=== PATIENT | female | born 1980 | race Caucasian/White ===

== ENCOUNTER → 2018-02-15 18:12 | Outpatient (CLI) | payer OTHER, SELFPAY ==
[2018-02-20 17:13] LABS: HPV APTIMA, High Risk Negative (Negative)
== END ==
PROVIDERS: Visit Provider Obstetrics & Gynecology
DX: Z12.4 Encounter for screening for malignant neoplasm of cervix (principal)
CPT/HCPCS: 88175; G0145

== ENCOUNTER → 2018-03-05 12:12 | Outpatient (CLI) | payer OTHER, SELFPAY ==
[2018-03-05 14:06] LABS: Follicle Stimulating Hormone 11.3 mIU/mL; Prolactin 9.9 ng/mL; Thyroid Stim Hormone (TSH) 2.44 uIU/mL (0.358-3.74)
== END ==
PROVIDERS: Visit Provider Obstetrics & Gynecology
DX: N97.9 Female infertility, unspecified (principal)
CPT/HCPCS: 36415; 83001; 84146; 84443

== ENCOUNTER → 2019-01-30 11:51 | Outpatient (CLI) | payer OTHER, SELFPAY ==
[2019-02-03 12:59] LABS: Anti-Mullerian Hormone,Serum 0.824 ng/mL (.)
== END ==
DX: Z31.41 Encounter for fertility testing (principal)
CPT/HCPCS: 36415; 83516

== ENCOUNTER → 2019-04-29 | Outpatient (CLI) | payer OTHER, SELFPAY ==
[2018-02-15 08:49] VITALS: BMI 19.1
[2019-04-29 08:37] LABS: Prolactin 19.4 ng/mL; Thyroid Stim Hormone (TSH) 3.58 uIU/mL (0.358-3.74)
== END | disposition home or self-care (01) ==
LOC: LAB 07:14
DX: Z13.29 Encounter for screening for other suspected endocrine disorder (principal)
CPT/HCPCS: 36415; 84146; 84443

== ENCOUNTER → 2020-01-14 | Outpatient (CLI) | payer OTHER, SELFPAY ==
[2018-02-15 08:49] VITALS: BMI 19.1
[2020-01-14 08:55] LABS: Progesterone Level 45.09 ng/mL (See Comment)
== END | disposition home or self-care (01) ==
LOC: LAB 06:52
DX: N97.0 Female infertility associated with anovulation (principal)
CPT/HCPCS: 36415; 84144

== ENCOUNTER 2021-06-04 11:52 | Emergency (ER) | payer OTHER, SELFPAY ==
[2021-06-04 11:53] VITALS: BP 112/69; PULSE 67; RESP 18; TEMP 36.6; O2SAT 97; BMI 19.2
--- NOTE | 2021-06-04 12:26 | EX.ED.UPPERE ---
HPI History of Present Illness HPI Narrative: Patient presents after needlestick that occurred today. Patient states that she was using a K wire on a patient when it accidentally cut her finger. Patient reports that the K wire was exposed to the source patient although it was not deep into the source patient. Patient states the K wire cut her on the cuticle of her right index finger. Patient states that it was bleeding briskly initially. Patient denies any paresthesias or weakness. Chief Complaint: Occup Expose Informant: patient Occured/Mechanism Mechanism/Context: Yes puncture wound Onset/Context/Timing Onset: Today Context: Sudden Onset Timing: Continuous Location: Right index finger Worsened by: Nothing Relieved by: Nothing Associated Symptoms Associated Symptoms: Negative for Parasthesia and Weakness PFSH PFSH Home Medications NK 02/15/18 [History Last Taken Unknown] Allergy/AdvReac Type Severity Reaction Status Date / Time No Known Allergies Allergy Verified 06/04/21 11:56 Family History (Updated 02/15/18 @ 08:48 by Lacie Martinez) Father Diabetes Grandfather Diabetes Colon cancer Grandmother Rheumatoid arthritis Lung cancer Surgical History S/P right breast biopsy Social History Smoking Status: Never smoker alcohol intake: current details: occasionally substance use type: does not use caffeine: Yes what type of physical activity do you participate in: running and weight training frequency: 3-4 times per week seatbelt use: always do you feel safe at home: Yes additional social history: - Rakesh- 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 BARBARA JIMENEZ ED Constitutional Constitutional ED: Denies chills or fever(s) Eyes Eyes: Denies blurry vision or change in vision ENT ENT ED: Denies rhinorrhea or sore throat Cardiovascular Cardiovascular: Denies chest pain or palpitations Respiratory/Chest Respiratory/Chest: Denies cough or dyspnea Gastrointestinal Gastrointestinal: Denies nausea or vomiting Genitourinary Genitourinary ED: Denies dysuria or hematuria Musculoskeletal Musculoskeletal: Denies back pain or neck pain Integumentary Denies abscess or rash Neurologic Neurologic: Denies headache(s) or weakness Allergic/Immunologic Allergic/Immunologic ED: Denies mouth swelling or urticaria EXAM Physical Exam Const Vital Signs: 06/04/21 11:53 Temperature 97.9 F Temperature Source Temporal Pulse Rate 67 Respiratory Rate 18 Blood Pressure 112/69 Blood Pressure Mean 83 Pulse Ox 97 Oxygen Delivery Method Room Air Positive well nourished and well developed General Appearance ED: well developed HEENT Reports moist mucous membranes Neck full ROM Neuro oriented x3, CN's II-XII intact bilaterally, moves all extremities, no focal motor deficits and no sensory deficits noted Sensorium / Orientation: alert Psych mental status grossly normal Skin Skin Narrative: There is a small puncture wound over the dorsal aspect of the right index finger along the cuticle. There is no active bleeding noted. There is no erythema. There is no discharge or drainage. There is full range of motion of the DIP and IP joints of the right index finger. Capillary refill was less than 2 seconds in all digits. MDM MDM MDM Narrative Medical decision making narrative: Postexposure labs were drawn. Patient was offered postexposure prophylaxis for HIV. Patient does not want this at this time. Patient states that the source patient is low risk. Patient states her puncture wound is low risk. Patient was instructed to keep the wound clean and dry. Patient was instructed to follow-up with [facility] for her results. Patient understood and was agreeable with the plan. All questions were answered. 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
[2021-06-04 12:37] VITALS: PULSE 67; RESP 18; O2SAT 97
[2021-06-04 13:41] LABS: HIV - WCH Non-Reactive (Nonreactive); Hepatitis B Surface Antibody Reactive; Hepatitis B Surface Antigen Non-Reactive (Nonreactive); Hepatitis C Antibody Non-Reactive (Nonreactive)
== END 2021-06-04 12:37 | disposition home or self-care (01) ==
PROVIDERS: Emergency Provider Emergency Medicine
DX: S61.230A Puncture wound without foreign body of right index finger without damage to nail, initial encounter (principal); W46.1XXA Contact with contaminated hypodermic needle, initial encounter; Y93.89 Activity, other specified; Y92.89 Other specified places as the place of occurrence of the external cause; Y99.0 Civilian activity done for income or pay
CPT/HCPCS: 86703; 86706; 86803; 87340; 99282

== ENCOUNTER 2024-07-01 13:18 | Inpatient (IN) | payer OTHER, SELFPAY ==
[2024-07-01 13:19] VITALS: BP 119/80; PULSE 83; RESP 16; TEMP 37.1; O2SAT 100; BMI 21.6
--- NOTE | 2024-07-01 14:09 | EDS_ITS ---
HPI HPI - GI History of Present Illness Chief Complaint: Abd Pain Abdominal Pain/Flank Pain Onset: Weeks (1.5-2) Context: Gradual Onset Timing: Waxes and wanes Quality: Sharp and Stabbing Location: RUQ and RLQ Worsened by: - (Bending forward and flexing abdomen) Relieved by: - (Rest) Nausea/Vomiting/Emesis GI Symptom: Negative for Nausea or Vomiting Diarrhea/Melena/Hematochezia GI Symptom: Negative for Diarrhea, Melena or Hematochezia Associated Symptoms Associated Symptoms: Negative for Dysuria, Frequency or Hematuria Narrative Narrative: Patient presents with right-sided abdominal pain that has been getting worse over the past 1-1/2 to 2 weeks. Patient states it is mainly over the right side of her abdomen. Patient states it is worse with eating and worse when she flexes her abdomen. Patient states it has been waxing and waning but getting progressively worse. Patient states her symptoms seem to get better with rest. Patient denies any nausea or vomiting but admits to some decrease in her appetite. Patient denies any diarrhea, melena, or hematochezia. Patient denies any urinary complaints. PFSH PFSH Medical History no medical history no medical history Home Medications ?Medication ?Instructions ?Recorded ?Last Taken ?Type NK 02/15/18 Unknown History Allergy/AdvReac Type Severity Reaction Status Date / Time No Known Allergies Allergy Verified 07/01/24 13:19 Family History (Updated 02/15/18 @ 08:48 by Lacie Martinez) Father Diabetes Grandfather Diabetes Colon cancer Grandmother Rheumatoid arthritis Lung cancer Surgical History S/P right breast biopsy Social History Smoking Status: Never smoker alcohol intake: current details: occasionally substance use type: does not use caffeine: Yes what type of physical activity do you participate in: running and weight training frequency: 3-4 times per week seatbelt use: always do you feel safe at home: Yes additional social history: - 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 ROS ROS ED Constitutional Constitutional ED: Denies chills or fever(s) Eyes Eyes: Denies blurry vision or change in vision ENT ENT ED: Denies rhinorrhea or sore throat Cardiovascular Cardiovascular: Denies chest pain or palpitations Respiratory/Chest Respiratory/Chest: Denies cough or dyspnea Gastrointestinal Gastrointestinal: Reports abdominal pain; Denies nausea or vomiting Genitourinary Genitourinary ED: Denies dysuria or hematuria Musculoskeletal Musculoskeletal: Reports back pain; Denies neck pain Integumentary Denies abscess or rash Neurologic Neurologic: Denies headache(s) or weakness Allergic/Immunologic Allergic/Immunologic ED: Denies mouth swelling or urticaria EXAM Physical Exam Const Vital Signs: 07/01/24 13:19 Temperature 98.8 F Temperature Source Oral Pulse Rate 83 Respiratory Rate 16 Blood Pressure 119/80 Blood Pressure Mean 93 Pulse Ox 100 Oxygen Delivery Method Room Air Positive well nourished and well developed General Appearance ED: well developed and NAD HEENT Reports moist mucous membranes Neck supple and no JVD Resp normal respiratory effort Cardio regular rate and regular rhythm GI non-distended Palpation: soft and tender epigastric, RLQ, RUQ and Cast's sign (Negative); Negative for guarding or rebound tenderness present Extremity full ROM General Extremety ED: Negative for edema or tenderness General Extremity: Negative for edema Neuro CN's II-XII intact bilaterally, moves all extremities and no sensory deficits noted Sensorium / Orientation: alert Motor Exam: strength 5/5 throughout Psych mental status grossly normal Skin no wounds MDM MDM MDM Narrative Medical decision making narrative: Differential diagnosis is gastritis, peptic ulcer disease, duodenal ulcer, cholecystitis, cholelithiasis, ureteral calculus, pyelonephritis, appendicitis, pancreatitis, colitis, urinary tract infection, ectopic , ovarian cyst, and . CBC will be obtained to assess for leukocytosis and anemia. Comprehensive metabolic profile will be obtained to assess for hepatic function, renal function, and electrolyte abnormality. Lipase will be obtained to assess for pancreatitis. Serum hCG will be obtained to assess for . Urinalysis will be obtained to assess for urinary tract infection and hematuria. CT scan of the abdomen and pelvis will be obtained to assess for cholecystitis, appendicitis, and colitis. Lab Data Attestation: I reviewed the patient's lab results. Lab results narrative: CBC was reviewed. There is a leukocytosis of 19.0. There is an absolute neutrophil count of 15.6. Comprehensive metabolic profile was reviewed and was essentially within normal limits. Lipase was reviewed and was normal at 30. Serum hCG was reviewed and was negative. Labs: Laboratory Results - last 24 hr 07/01/24 14:20 WBC 19.0 H RBC 4.20 Hgb 13.1 Hct 40.3 MCV 96.0 MCH 31.2 MCHC 32.5 RDW Std Deviation 45.3 H RDW Coeff of Harry 12.8 Plt Count 269 MPV 10.6 Immature Gran % (Auto) 0.500 Neut % (Auto) 82.2 H Lymph % (Auto) 7.8 L [place] % (Auto) 9.2 Eos % (Auto) 0.1 Baso % (Auto) 0.2 Absolute Neuts (auto) 15.6 H Absolute Lymphs (auto) 1.47 Nucleated RBC % 0 Differential Comment COMMENT Diff Path Review May foll Sodium 135 L Potassium 4.1 Chloride 104 Carbon Dioxide 29.0 Anion Gap 2 L BUN 9 Creatinine 0.82 Estim Creat Clear Calc 77.96 Est GFR (MDRD) Af Amer 99 Est GFR (MDRD) Non-Af 81 BUN/Creatinine Ratio 11.0 Glucose 107 H Calcium 8.8 Total Bilirubin 0.70 AST 13 L ALT 14 Alkaline Phosphatase 46 Total Protein 7.3 Albumin 3.0 L Globulin 4.3 H Albumin/Globulin Ratio 0.7 L Lipase 30 Serum , Qual NEGATIVE Radiography Diagnostic Testing: Clinical Impression(s) from Imaging Studies Abdomen/Pelvis CT 07/01/24 14:47 IMPRESSION: Diffuse inflammatory process in the right lower quadrant I suspect due to underlying appendicitis. There is bowel wall thickening, induration of the pericolonic fat and some small reactive lymph nodes. No perforation or abscess. However, other possibilities could include typhlitis or pelvic inflammatory disease. Surgical consultation recommended No suspicious solid organ abnormality Free fluid in the dependent pelvis, likely physiologic N.B. : The above Results were Read Back by Gautam Wilkes MD to Chilo Ramires DO, and understanding confirmed on 07/01/2024 15:04:56 (ET). Electronically Signed: Gautam Wilkes MD at 15:08 EST , ADDENDUM: 07/01/24 5906 IMPRESSION: Diffuse inflammatory process in the right lower quadrant I suspect due to underlying appendicitis. There is bowel wall thickening, induration of the pericolonic fat and some small reactive lymph nodes. No perforation or abscess. However, other possibilities could include typhlitis or pelvic inflammatory disease. Surgical consultation recommended No suspicious solid organ abnormality Free fluid in the dependent pelvis, likely physiologic N.B. : The above Results were Read Back by Gautam Wilkes MD to Chilo Ramires DO, and understanding confirmed on 07/01/2024 15:04:56 (ET). Electronically Signed: Gautam Wilkes MD at 15:08 EST , CT scan of the abdomen and pelvis was obtained. There is diffuse inflammatory process in the right lower quadrant suspecting appendicitis. There is bowel wall thickening and induration of the pericolonic fat and some small reactive lymph nodes. There is no perforation or abscess. This was interpreted by the radiologist and was also independently reviewed by myself. Management Discussion w/another healthcare provider: Glass Bead Maker (Dr. Souza from general surgery) Treatment and Re-Evaluation :: Patient was given IV fluids. Patient declined any analgesics or antiemetics medications at this time. Patient was advised of her findings. Patient was given a dose of Zosyn. Case was discussed with Dr. Souza. He will be in to evaluate the patient. He evaluated the patient. He will admit the patient to his service for observation. Patient understood and was agreeable with the plan. All questions were answered. Discharge Plan Triage Chief Complaint: Abd Pain ED Provider: Chilo Ramires Dx/Rx/DC Orders Clinical Impression: Acute appendicitis, Leukocytosis, Right lower quadrant abdominal pain Prescriptions: No Action NK Primary Care Provider: Mattie Fairbanks Referrals: NOT,DEFINED [Non-Staff] - Print Language: Upper Sorbian Disposition Disposition: Acute Care [facility]
[2024-07-01] MEDS: 0.9% Normal Saline (1000mL) 1,000 ML 999 ML IV (14:19)
[2024-07-01 14:28] LABS: Absolute Lymphocyte Count 1.47 X10^3/uL (0.83-4.51); Absolute Neutrophil Count 15.6 X10^3/uL (2.0-7.7); Basophil# 0.03 X10^3/uL; Basophil% 0.2 % (0-1); Eosinophil# 0.02 X10^3/uL; Eosinophils% 0.1 % (0-5); Hematocrit 40.3 % (37-47); Hemoglobin 13.1 g/dL (12.0-15.0); Lymphocyte # 1.47 X10^3/ul (0.83-4.51); Lymphocyte % 7.8 % (19-41); Mean Corp Hgb Conc 32.5 g/dL (32-36); Mean Corpuscular Hgb 31.2 pg (27.0-32.0); Mean Platelet Vol. 10.6 fl (6.2-12.0); Monocyte# 1.74 X10^3/uL; Monocyte% 9.2 % (0-10); NRBC Flagged by Analyzer 0 % (0-5); Neutrophil # 15.61 X10^3/uL (2.7-7.7); Neutrophil % 82.2 % (47-70); POSITIVE DIFFERENTIAL YES; Platelet Count 269 K/mm3 (150-450); RBC Distribution Width CV 12.8 % (11.6-14.6); RBC Distribution Width SD 45.3 fl (35.1-43.9)
[2024-07-01 14:31] LABS: Differential Indicated SCAN CRITERIA MET
[2024-07-01 14:40] LABS: Internal QC Validated? YES +Cl - CLEAR BKGD; Pregnancy, Serum, hCG Quali. NEGATIVE Negative
[2024-07-01 14:45] LABS: ALB/GLOB Ratio 0.7 RATIO (0.9-2.4); AST(SGOT) 13 U/L (15-37); Alanine Aminotransfer ALT/SGPT 14 U/L (13-56); Alkaline Phosphatase 46 U/L (45-117); Anion Gap 2 (5-15); BUN 9 mg/dL (7-18); Calcium,Total 8.8 mg/dL (8.5-10.1); Chloride 104 mmol/L (98-107); Creatinine, Serum 0.82 mg/dL (0.55-1.02); EST Glomerular Filtration Rate 81 mL/min (>60); Est Glom Filt Rate - Afr Amer 99 mL/min (>60); Estimated Creatinine Clearance 77.96 ml/min; Globulin 4.3 g/dL (2.2-4.2); Glucose 107 mg/dL (74-106); Lipase 30 U/L (13-75); Potassium 4.1 mmol/L (3.5-5.1); Protein, Total 7.3 g/dL (6.4-8.2); Sodium Level 135 mmol/L (136-145)
--- NOTE | 2024-07-01 14:47 | CT_ITS ---
STUDY: CT ABDOMEN AND PELVIS WITH CONTRAST REASON FOR EXAM: Female, 43 years old. Abdominal pain RADIATION DOSAGE (If Supplied By Facility): CTDIvol = ( 9.69 ) mGy, DLP = ( 317.87 ) mGycm TECHNIQUE: Transaxial images were obtained from the dome of the diaphragm to the symphysis pubis without oral contrast. IV 100mL Isovue-370 was administered. Sagittal and coronal images were reconstructed. Individualized dose optimization techniques were used for this CT. COMPARISON: None. FINDINGS: The visualized lung bases are unremarkable. The visualized portions of the heart are within normal limits. Normal liver. Normal gallbladder and extrahepatic biliary system. Normal spleen. Normal pancreas. Normal bilateral adrenal glands. Normal right kidney. Normal left kidney. Normal visualized stomach. There is a diffuse inflammatory process in the right lower quadrant with submucosal bowel wall thickening, induration of the pericolonic fat and multiple subcentimeter likely reactive lymph nodes. I suspect this is most likely due to an acute appendicitis has suspect the abnormal fluid-filled enhancing appendix is seen on axial images 75 through 84, and coronal recon images 34 through 38. Other possibilities could include typhlitis or pelvic inflammatory disease. Surgical consultation recommended Normal abdominal aorta. Normal inferior vena cava. Normal retroperitoneum. Normal urinary bladder. Normal appearing uterus. No suspicious enlarged mass there is free fluid in the dependent pelvis. Normal abdominal wall. Normal osseous structures. CT/Abdomen/Pelvis W IV Cont ONLY IMPRESSION: Diffuse inflammatory process in the right lower quadrant I suspect due to underlying appendicitis. There is bowel wall thickening, induration of the pericolonic fat and some small reactive lymph nodes. No perforation or abscess. However, other possibilities could include typhlitis or pelvic inflammatory disease. Surgical consultation recommended No suspicious solid organ abnormality Free fluid in the dependent pelvis, likely physiologic N.B. : The above Results were Read Back by Gautam Wilkes MD to Chilo Ramires DO, and understanding confirmed on 07/01/2024 15:04:56 (ET). Electronically Signed: Gautam Wilkes MD at 15:08 EST ,
[2024-07-01 15:12] LABS: Bacteria 0 SEEN /hpf (None Seen); Mucous, Urine 0 SEEN /hpf (<or=2+); Squamous Epithelial Cells - UA 0 SEEN /hpf (5-10); White Blood Cells 0 SEEN /hpf (0-5)
[2024-07-01 15:19] VITALS: BP 123/73; PULSE 75; RESP 14; O2SAT 98
[2024-07-01 15:31] LABS: Color, Urine Yellow (Yellow); Glucose, Dipstick Normal (Normal); Ketone-Dipstick 15 mg/dl (Negative); Leukocyte Esterase-Dipstick Negative /ul (Negative); Nitrite-Dipstick Negative (Negative); Occult Blood-Urine 50 /ul (Negative); Protein-Dipstick 15 mg/dl (Negative); Urine Bilirubin Dipstick Negative (Negative); Urine Clarity Clear (Clear); Urine Urobilinogen Normal (Normal); Urine pH 6.5 (5.0 - 8.0)
[2024-07-01] MEDS: Piperacil/Tazobactam 4.5 GM in 0.9% Normal Saline (100mL MB+) 100 ML IV (15:39)
[2024-07-01 15:43] LABS: Red Blood Cells-Urine 0-5 SEEN /hpf (0-5)
[2024-07-01 15:48] VITALS: BP 115/76; PULSE 75; RESP 16; TEMP 37; O2SAT 100
--- NOTE | 2024-07-01 15:54 | HP.PCM.SX_ITS ---
HPI - General HPI Narrative RAY TORRES, is a 43 F who presents with right lower quadrant pain. The patient says this has been going on for about a week and a half but got worse yesterday. She denies nausea or vomiting or fevers or chills. She denies any other pain. PFSH Medical History no medical history Home Medications ?Medication ?Instructions ?Recorded ?Last Taken ?Type NK 02/15/18 Unknown History Allergy/AdvReac Type Severity Reaction Status Date / Time No Known Allergies Allergy Verified 07/01/24 13:19 Family History (Updated 02/15/18 @ 08:48 by Lacie Martinez) Father Diabetes Grandfather Diabetes Colon cancer Grandmother Rheumatoid arthritis Lung cancer Surgical History S/P right breast biopsy Social History Smoking Status: Never smoker alcohol intake: current details: occasionally substance use type: does not use caffeine: Yes what type of physical activity do you participate in: running and weight training frequency: 3-4 times per week seatbelt use: always do you feel safe at home: Yes additional social history: - 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 ROS Constitutional Constitutional: Denies anorexia, chills, fatigue or fever(s) Eyes Eyes: Denies blurry vision ENT HEENT: Denies abnormal hearing Cardiovascular Cardiovascular: Denies chest pain Respiratory/Chest Respiratory/Chest: Denies cough or dyspnea Gastrointestinal Gastrointestinal: Reports abdominal pain; Denies melena, nausea or vomiting Genitourinary Genitourinary: Denies change in urinary stream Musculoskeletal Musculoskeletal: Denies abnormal gait Integumentary Integumentary: Denies jaundice Neurologic Neurologic: Denies abnormal gait Vital Signs Vital Signs Vital Signs: 07/01/24 13:19 07/01/24 15:19 07/01/24 15:48 Temperature 98.8 F 98.6 F Temperature Source Oral Pulse Rate 83 75 75 Respiratory Rate 16 14 16 Blood Pressure 119/80 123/73 H 115/76 Blood Pressure Mean 93 89 89 Pulse Ox 100 98 100 Oxygen Delivery Method Room Air Room Air Weight Weight: 126 lb Body Mass Index (BMI) 21.6 Physical Exam Const oriented x3 and no apparent distress Resp normal respiratory effort Cardio regular rate and regular rhythm GI soft to palpation Palpation: tender RLQ Results Lab / Micro Data 07/01/24 14:20 07/01/24 14:20 Labs: Laboratory Results - last 24 hr 07/01/24 14:20: WBC 19.0 H, RBC 4.20, Hgb 13.1, Hct 40.3, MCV 96.0, MCH 31.2, MCHC 32.5, RDW Std Deviation 45.3 H, RDW Coeff of Harry 12.8, Plt Count 269, MPV 10.6, Immature Gran % (Auto) 0.500, Neut % (Auto) 82.2 H, Lymph % (Auto) 7.8 L, [place] % (Auto) 9.2, Eos % (Auto) 0.1, Baso % (Auto) 0.2, Absolute Neuts (auto) 15.6 H, Absolute Lymphs (auto) 1.47, Nucleated RBC % 0, Differential Comment COMMENT, Diff Path Review October, Sodium 135 L, Potassium 4.1, Chloride 104, Carbon Dioxide 29.0, Anion Gap 2 L, BUN 9, Creatinine 0.82, Estim Creat Clear Calc 77.96, Est GFR (MDRD) Af Amer 99, Est GFR (MDRD) Non-Af 81, BUN/Creatinine Ratio 11.0, Glucose 107 H, Calcium 8.8, Total Bilirubin 0.70, AST 13 L, ALT 14, Alkaline Phosphatase 46, Total Protein 7.3, Albumin 3.0 L, Globulin 4.3 H, A lbumin/Globulin Ratio 0.7 L, Lipase 30, Serum , Qual NEGATIVE 07/01/24 15:00: Urine Color Yellow, Urine Clarity Clear, Urine pH 6.5, Ur Specific [place] 1.010, Urine Protein 15 H, Urine Glucose (UA) Normal, Urine Ketones 15 H, Urine Occult Blood 50 H, Urine Nitrite Negative, Urine Bilirubin Negative, Urine Urobilinogen Normal, Ur Leukocyte Esterase Negative, Urine RBC 0-5 SEEN, Urine WBC 0 SEEN, Ur Squamous Epith Cells 0 SEEN, Urine Bacteria 0 SEEN, Urine Mucus 0 SEEN Imaging Radiology Impression Abdomen/Pelvis CT 07/01/24 14:47 IMPRESSION: Diffuse inflammatory process in the right lower quadrant I suspect due to underlying appendicitis. There is bowel wall thickening, induration of the pericolonic fat and some small reactive lymph nodes. No perforation or abscess. However, other possibilities could include typhlitis or pelvic inflammatory disease. Surgical consultation recommended No suspicious solid organ abnormality Free fluid in the dependent pelvis, likely physiologic N.B. : The above Results were Read Back by Gautam Wilkes MD to Chilo Ramires DO, and understanding confirmed on 07/01/2024 15:04:56 (ET). Electronically Signed: Gautam Wilkes MD at 15:08 EST , ADDENDUM: 07/01/24 1515 IMPRESSION: Diffuse inflammatory process in the right lower quadrant I suspect due to underlying appendicitis. There is bowel wall thickening, induration of the pericolonic fat and some small reactive lymph nodes. No perforation or abscess. However, other possibilities could include typhlitis or pelvic inflammatory disease. Surgical consultation recommended No suspicious solid organ abnormality Free fluid in the dependent pelvis, likely physiologic N.B. : The above Results were Read Back by Gautam Wilkes MD to Chilo Ramires DO, and understanding confirmed on 07/01/2024 15:04:56 (ET). Electronically Signed: Gautam Wilkes MD at 15:08 EST , Assessment & Plan Assessment/Plan (1) Acute appendicitis: PLAN: The patient has right lower quadrant pain and CT scan revealed thickening and inflammation in the right lower quadrant and the suspect due to appendicitis. The patient has had pain for a week and a half which did worsen yesterday but she denies fevers or chills. Her white count is markedly elevated. At this point I feel like she may have had appendicitis for several days and I would try conservative management. I discussed this with her in detail and did offer her surgery but I did warn him that there is a chance of ileocecectomy as the cecum appears inflamed. I discussed observation on antibiotics and clear liquids. If anything worsens tomorrow we will take her for surgery tomorrow. Recheck white count in the morning. Mike Souza MD Pager: [facility] [address] [place] [address], [address] [place] [address] Office:
[2024-07-01 17:00] VITALS: BP 110/73; PULSE 71; RESP 14; O2SAT 99
[2024-07-01 18:56] VITALS: BMI 21.4
[2024-07-01 19:09] VITALS: BP 118/68; PULSE 90; RESP 16; TEMP 37.9; O2SAT 96
[2024-07-01] MEDS: 0.9% Normal Saline (1000mL) 1,000 ML 100 ML IV (19:44)
[2024-07-01] MEDS: 0.9% Saline Lock 10 ML Syringe IV (19:45)
[2024-07-01] MEDS: Acetaminophen 325 MG Tablet 650 MG PO (19:48)
[2024-07-01] MEDS: Piperacil/Tazobactam 3.375 GM in 0.9% Normal Saline (50mL MB+) 50 ML IV (21:25)
[2024-07-01 21:30] VITALS: BP 113/67; PULSE 78; RESP 15; TEMP 37.9; O2SAT 97
[2024-07-02] VITALS (16 sets, daily range): BP systolic 103–130; BP diastolic 51–75; PULSE 60–93; RESP 14–18; TEMP 36.7–37.7; O2SAT 96–100
--- NOTE | 2024-07-02 | APP_PTH ---
PATIENT: RAY OTRRES LOC: PCU U#:[id number] AGE/SX: 43/F ROOM: [facility] RE07/02/[address]: Dr. Mike Souza MD : 1980 BED: 1 DIS: 07/04/2024 SPEC #: [id number] RECD: 07/02/24 12:43 STATUS: STEVE ANDREA #: [id number] RADHA: 07/02/24 00:[address]: Mike Souza DEPT: SURGICAL PATHOLOGY RECD BY: Kenneth Nation ENTERED: 07/02/24 12:44 SP TYPE: APPENDIX OTHR DR: Mattie Fairbanks MD Tissues: Appendix, NOS Procedures: Surgery Specimen Level III HEADER OPERATION: Laparoscopic appendectomy PRE-OP DIAGNOSIS: Acute appendicitis TISSUE SUBMITTED: Appendix MICROSCOPIC DIAGNOSIS Appendix, appendectomy: Acute appendicitis and periappendicitis. SJ.mr 07/03/2024 MICROSCOPIC DESCRIPTION Slides are reviewed. GROSS DESCRIPTION Received in fixative is one container labeled with the patient's name and designated appendix. The specimen consists of an appendix in two pieces measuring 5.5 cm in length and up to 1.0 cm in diameter. The appendix is disrupted 1.5cm away and may represent area of rupture. The serosa is congested. Mucosa is congested and hemorrhagic. No fecalith is identified. Waiter/Waitress Economy Class sections are submitted in two cassettes. Cassette 1 contains the area of disruption. / JIN: 07/02/2024 TC:2 CPT: 31958
[2024-07-02] MEDS: Acetaminophen 325 MG Tablet 650 MG PO ×4 (03:47→18:56)
[2024-07-02] MEDS: Ondansetron 4 MG/2 ML Vial IV ×2 (03:47→10:55)
[2024-07-02 05:33] LABS: Absolute Lymphocyte Count 1.07 X10^3/uL (0.83-4.51); Absolute Neutrophil Count 13.8 X10^3/uL (2.0-7.7); Basophil# 0.03 X10^3/uL; Basophil% 0.2 % (0-1); Eosinophil# 0.06 X10^3/uL; Eosinophils% 0.4 % (0-5); Hematocrit 35.5 % (37-47); Hemoglobin 11.6 g/dL (12.0-15.0); Lymphocyte # 1.07 X10^3/ul (0.83-4.51); Lymphocyte % 6.4 % (19-41); Mean Corp Hgb Conc 32.7 g/dL (32-36); Mean Corpuscular Hgb 31.6 pg (27.0-32.0); Mean Corpuscular Volume 96.7 fL (81-99); Mean Platelet Vol. 10.7 fl (6.2-12.0); Monocyte# 1.73 X10^3/uL; Monocyte% 10.3 % (0-10); NRBC Flagged by Analyzer 0 % (0-5); Neutrophil # 13.77 X10^3/uL (2.7-7.7); Neutrophil % 82.2 % (47-70); POSITIVE DIFFERENTIAL YES; Platelet Count 242 K/mm3 (150-450); RBC Distribution Width CV 12.7 % (11.6-14.6); RBC Distribution Width SD 45.5 fl (35.1-43.9); Red Blood Count 3.67 M/mm3 (4.2-5.4); White Blood Count 16.7 K/mm3 (4.4-11.0)
[2024-07-02 05:37] LABS: Differential Indicated SCAN CRITERIA MET
[2024-07-02] MEDS: Piperacil/Tazobactam 3.375 GM in 0.9% Normal Saline (50mL MB+) 50 ML IV ×3 (05:45→22:20)
[2024-07-02] MEDS: 0.9% Normal Saline (1000mL) 1,000 ML 100 ML IV (05:47)
[2024-07-02 05:55] LABS: Anion Gap 2 (5-15); BUN 8 mg/dL (7-18); Calcium,Total 8.1 mg/dL (8.5-10.1); Chloride 107 mmol/L (98-107); Creatinine, Serum 0.73 mg/dL (0.55-1.02); EST Glomerular Filtration Rate 94 mL/min (>60); Est Glom Filt Rate - Afr Amer 113 mL/min (>60); Estimated Creatinine Clearance 87.58 ml/min; Glucose 112 mg/dL (74-106); Potassium 4.1 mmol/L (3.5-5.1); Sodium Level 134 mmol/L (136-145)
[2024-07-02 06:51] LABS: Differential Comment SCANNED
--- NOTE | 2024-07-02 07:57 | PN.SURG_ITS ---
Subjective Subjective Patient reports her pain did worsen overnight and then it felt better after taking Tylenol. She also had a low-grade fever of 100.3. Objective Data Objective Data Vital Signs: Vital Signs Temp Pulse Resp BP Pulse Ox O2 Del Method 99.2 F H 93 17 112/62 97 Room Air 07/02/24 06:00 07/02/24 04:00 07/02/24 04:00 07/02/24 04:00 07/02/24 04:00 07/02/24 04:00 Oxygen Delivery Method Room Air Weight: 124 lb 12.506 oz Body Mass Index (BMI) 21.4 Intake & Output: Intake and Output for Last 24 Hours 06/30/24 07/01/24 07/02/24 23:59 23:59 23:59 Intake Total 1100 / 1100 1050 / 1050 Balance 1100 / 1100 1050 / 1050 Lab / Micro Data 07/02/24 05:21 07/02/24 05:21 Labs: Laboratory Results - last 24 hr 07/01/24 14:20: WBC 19.0 H, RBC 4.20, Hgb 13.1, Hct 40.3, MCV 96.0, MCH 31.2, MCHC 32.5, RDW Std Deviation 45.3 H, RDW Coeff of Harry 12.8, Plt Count 269, MPV 10.6, Immature Gran % (Auto) 0.500, Neut % (Auto) 82.2 H, Lymph % (Auto) 7.8 L, [place] % (Auto) 9.2, Eos % (Auto) 0.1, Baso % (Auto) 0.2, Absolute Neuts (auto) 15.6 H, Absolute Lymphs (auto) 1.47, Nucleated RBC % 0, Differential Comment COMMENT, Diff Path Review October, Sodium 135 L, Potassium 4.1, Chloride 104, Carbon Dioxide 29.0, Anion Gap 2 L, BUN 9, Creatinine 0.82, Estim Creat Clear Calc 77.96, Est GFR (MDRD) Af Amer 99, Est GFR (MDRD) Non-Af 81, BUN/Creatinine Ratio 11.0, Glucose 107 H, Calcium 8.8, Total Bilirubin 0.70, AST 13 L, ALT 14, Alkaline Phosphatase 46, Total Protein 7.3, Albumin 3.0 L, Globulin 4.3 H, A lbumin/Globulin Ratio 0.7 L, Lipase 30, Serum , Qual NEGATIVE 07/01/24 15:00: Urine Color Yellow, Urine Clarity Clear, Urine pH 6.5, Ur Specific [place] 1.010, Urine Protein 15 H, Urine Glucose (UA) Normal, Urine Ketones 15 H, Urine Occult Blood 50 H, Urine Nitrite Negative, Urine Bilirubin Negative, Urine Urobilinogen Normal, Ur Leukocyte Esterase Negative, Urine RBC 0-5 SEEN, Urine WBC 0 SEEN, Ur Squamous Epith Cells 0 SEEN, Urine Bacteria 0 SEEN, Urine Mucus 0 SEEN 07/02/24 05:21: WBC 16.7 H, RBC 3.67 L, Hgb 11.6 L, Hct 35.5 L, MCV 96.7, MCH 31.6, MCHC 32.7, RDW Std Deviation 45.5 H, RDW Coeff of Harry 12.7, Plt Count 242, MPV 10.7, Immature Gran % (Auto) 0.500, Neut % (Auto) 82.2 H, Lymph % (Auto) 6.4 L, [place] % (Auto) 10.3 H, Eos % (Auto) 0.4, Baso % (Auto) 0.2, Absolute Neuts (auto) 13.8 H, Absolute Lymphs (auto) 1.07, Nucleated RBC % 0, Differential Comment SCANNED, Sodium 134 L, Potassium 4.1, Chloride 107, Carbon Dioxide 25.0, Anion Gap 2 L, BUN 8, Creatinine 0.73, Estim Creat Clear Calc 87.58, Est GFR (MDRD) Af Amer 113, Est GFR (MDRD) Non-Af 94, BUN/Creatinine Ratio 11.0, Glucose 112 H, Calcium 8.1 L Radiography Diagnostic Testing: Radiology Impression Abdomen/Pelvis CT 07/01/24 14:47 IMPRESSION: Diffuse inflammatory process in the right lower quadrant I suspect due to underlying appendicitis. There is bowel wall thickening, induration of the pericolonic fat and some small reactive lymph nodes. No perforation or abscess. However, other possibilities could include typhlitis or pelvic inflammatory disease. Surgical consultation recommended No suspicious solid organ abnormality Free fluid in the dependent pelvis, likely physiologic N.B. : The above Results were Read Back by Gautam Wilkes MD to Chilo Ramires DO, and understanding confirmed on 07/01/2024 15:04:56 (ET). Electronically Signed: Gautam Wilkes MD at 15:08 EST , ADDENDUM: 07/01/24 1515 IMPRESSION: Diffuse inflammatory process in the right lower quadrant I suspect due to underlying appendicitis. There is bowel wall thickening, induration of the pericolonic fat and some small reactive lymph nodes. No perforation or abscess. However, other possibilities could include typhlitis or pelvic inflammatory disease. Surgical consultation recommended No suspicious solid organ abnormality Free fluid in the dependent pelvis, likely physiologic N.B. : The above Results were Read Back by Gautam Wilkes MD to Chilo Ramires DO, and understanding confirmed on 07/01/2024 15:04:56 (ET). Electronically Signed: Gautam Wilkes MD at 15:08 EST , Physical Exam Const oriented x3 and no apparent distress Resp normal respiratory effort GI soft to palpation Palpation: tender RLQ Assessment & Plan Assessment/Plan (1) Acute appendicitis: QUALIFIERS: Acute appendicitis type: unspecified acute appendicitis type Qualified Code(s): K35.80 - Unspecified acute appendicitis PLAN: The patient had low-grade fever overnight and so I recommend operative management at this point. I discussed laparoscopic appendectomy with the patient in detail. I discussed the risks including but not limited to bleeding, infection, injury other organs such as bowel or ureter or bladder. Patient understands the risks and is 1 to proceed. I also informed that there was a higher than normal risk of having to convert to open and perform an ileocecectomy due to the thickening of her cecum. The patient understands and is agreeable.
--- NOTE | 2024-07-02 08:14 | PCM.PRE.AN2 ---
ASA Classification* ASA Classification ASA Classification: 1 and E Assessment & Plan Anesthesia* Anesthesia Assessment Anesthesia Assessment: Discussed sedation and/or anesthesia options, risks, benefits, and alternatives with patient/parents/legal guardian/POA. Questions invited. The patient/parents/legal guardian/POA seems to understand and agrees to proceed with anesthesia plan. Reviewed the physical assessment, medical history, allergy history and patient home medications list prior to surgery/procedure/anesthetic and documented any changes. Performed airway and anesthesia risk assessments. Anesthesia Type Anesthesia Type: General History Source History Obtained from:: Patient and Chart Anesthesia Focused Assessment* Temperature: 99.2 F Pulse Rate: 93 Blood Pressure: 112/62 Respiratory Rate: 17 Pulse Ox: 97 Oxygen Delivery Method: Room Air Airway Assessment Mouth opens: >3 cm Mallampati Score: I Teeth Condition: Caps/Crowns (Patient has couple crowns. They are tight.) Neck Range of motion (ROM): Full ROM Focused Labs Anesthesia Preop lab: CBC WBC 16.7 K/mm3 (4.4-11.0) H 07/02/24 05:21 RBC 3.67 M/mm3 (4.2-5.4) L 07/02/24 05:21 Hgb 11.6 g/dL (12.0-15.0) L 07/02/24 05:21 Hct 35.5 % (37-47) L 07/02/24 05:21 Plt Count 242 K/mm3 (150-450) 07/02/24 05:21 CHEMISTRY Potassium 4.1 mmol/L (3.5-5.1) 07/02/24 05:21 Sodium 134 mmol/L (136-145) L 07/02/24 05:21 BUN 8 mg/dL (7-18) 07/02/24 05:21 Creatinine 0.73 mg/dL (0.55-1.02) 07/02/24 05:21 Glucose 112 mg/dL (74-106) H 07/02/24 05:21 TSH 3.58 uIU/mL (0.358-3.74) 04/29/19 07:17 COAG Pre-Assessment Diagnosis/Proposed Procedure Planned Operative Procedure(s): Laparoscopic appendectomy Anesthesia History Anesthesia History - on 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 When Was Last Pacemaker Check QUESTION #4 FULL TEXT: You/Your Family Experience fever (hyperthermia) with Anesthesia Last Oral Intake Last Oral intake: Last Oral Intake NPO since Meds taken in AM with sips of water? Meds patient instructed to take am of surgery Any additional information?: Yes NPO since: 00:00 Meds taken in AM with sips of water?: Yes PONV PONV - on air personality: PONV - on air personality Female HX of Motion Sickness HX of N/V After Surgery Non-Smoker Duration of Surgery greater than 60 minutes Number of Risk Factors PONV Score Height & Weight Height & Weight: Anesthesia: Height & Weight Height 5 ft 4 in 07/01/24 18:56 Weight: 56.6 kg 07/01/24 18:56 Body Mass Index (BMI) 21.4 07/01/24 18:56 Respiratory Assessment Respiratory Assessment - on air personality: Respiratory Tract Infection Hx - on air personality Hx Respiratory Tract Infection Any additional information?: Yes Hx Respiratory Tract Infection: No STOP Sleep Apnea STOP Sleep Apnea - on air personality: STOP Sleep Apnea - on air personality Hx Hypertension No 07/01/24 18:59 Hx Sleep Apnea No 07/01/24 18:59 CPAP BIPAP Do you snore loudly (louder No 07/01/24 18:59 than talking or can be heard Do you often feel tired/ No 07/01/24 18:59 fatigued/ sleepy during daytime? Has anyone observed you stop No 07/01/24 18:59 breathing during sleep? STOP Results Negative 07/01/24 18:59 QUESTION #5 FULL TEXT : Do you snore loudly (louder than talking or can be heard through closed doors)? 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 Specify any problems Hx of Preganancy in last 3 No 07/01/24 18:59 Months Nurse Filling Out Transfusion [facility] 07/01/24 18:59 & Questions: Date: 07/01/24 07/01/24 18:59 Time: 19:01 07/01/24 18:59 Patient unable to answer at this time (ie. confused, unrespo /Reproduction History /Reproductive History - on air personality: /Reproductive Hx- on air personality Hx Now No 07/01/24 18:59 Gestational Age (in weeks): EDC: Hx Hx Para Hx Section SAB No 07/01/24 18:59 Active Medications Active Medications: Current Medications Generic Name Dose Route Start Last Admin Trade Name Freq PRN Reason Stop Dose Admin Acetaminophen 650 mg 07/01/24 15:58 07/02/24 03:47 Acetaminophen 325 Mg Tablet PO 650 mg Q4H PRN PRN Administration Pain 1-10 or Fever Sodium Chloride 1,000 mls @ 100 mls/hr 07/01/24 16:00 07/02/24 05:47 IV 07/02/24 11:59 100 mls/hr .Q10H ASHANTI Administration Protocol Sodium Chloride 100 mls @ 15 mls/hr 07/01/24 18:59 IV .Q6H40M PRN Saline Flush Sodium Chloride 100 mls @ 15 mls/hr 07/01/24 18:59 IV .Q6H40M PRN Additional IVPB Infusion Piperacillin Sod/Tazobactam 50 mls @ 12.5 mls/hr 07/01/24 22:00 07/02/24 05:45 Sod 3.375 gm/ Sodium Chloride IV 12.5 mls/hr Q8 ASHANTI Administration Sodium Chloride 100 mls @ 15 mls/hr 07/01/24 19:06 IV .Q6H40M PRN Saline Flush Sodium Chloride 100 mls @ 15 mls/hr 07/01/24 19:06 IV .Q6H40M PRN Additional IVPB Infusion Morphine Sulfate 2 - 4 mg 07/01/24 15:58 Morphine 2 Mg/Ml Syringe IV Q2H PRN PRN Pain Score 4-10 Ondansetron HCl 4 mg 07/01/24 15:58 07/02/24 03:47 Ondansetron 4 Mg/2 Ml Vial IV 4 mg Q6H PRN PRN Administration NAUSEA/VOMITING Sodium Chloride 10 - 40 ml 07/01/24 15:58 07/01/24 19:45 0.9% Saline Lock 10 Ml Syringe IV 10 ml UD PRN Administration SALINE FLUSH Sodium Chloride 10 - 40 ml 07/01/24 15:58 0.9% Saline Lock 10 Ml Syringe IV UD PRN SALINE FLUSH Sodium Chloride 10 - 40 ml 07/01/24 18:59 0.9% Saline Lock 10 Ml Syringe IV UD PRN SALINE FLUSH Sodium Chloride 10 - 40 ml 07/01/24 19:06 0.9% Saline Lock 10 Ml Syringe IV UD PRN SALINE FLUSH PFSH Medical History no medical history Home Medications ?Medication ?Instructions ?Recorded ?Last Taken ?Type NK 02/15/18 Unknown History Allergy/AdvReac Type Severity Reaction Status Date / Time No Known Allergies Allergy Verified 07/01/24 13:19 Family History Father Diabetes Grandfather Diabetes Colon cancer Grandmother Rheumatoid arthritis Lung cancer Surgical History S/P right breast biopsy Social History Smoking Status: Never smoker alcohol intake: current details: occasionally substance use type: does not use caffeine: Yes what type of physical activity do you participate in: running and weight training frequency: 3-4 times per week seatbelt use: always do you feel safe at home: Yes additional social history: - 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
[2024-07-02] MEDS: Bupiv/Epi 0.25% 30 ML Vial (09:37)
--- NOTE | 2024-07-02 09:50 | OP.PCM_ITS ---
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 The abdomen was prepped and draped in usual sterile fashion. A midline incision was made superior to the umbilicus and deepened to the fascia which was elevated and incised. Port was placed into the abdomen. Abdomen was insufflated to 15 mmHg. Camera was placed into the abdomen and under direct visualization her left lower quadrant 5 mm port was placed as well as a suprapubic 5 mm port. The cecum was identified and was very enlarged and edematous. The appendix was identified and in the process of retracting it the appendiceal abscess ruptured and the purulent material was suctioned. The appendix was identified and it was tightly adherent to the cecum. It was dissected off of the cecum and then stapled across the base. The area was irrigated and suctioned. A drain was placed through the left lower quadrant incision and placed into the pelvis with the tip ending near the appendiceal cavity. It was sutured in place using 3-0 nylon suture. Next the ports were removed and the abdomen was allowed to desufflate and the drain was placed to suction. The fascia in the midline was closed with a [id number] 0 Vicryl suture. All of the incisions were injected with local anesthetic and closed interrupted Monocryl sutures. Steri-Strips and bandages were applied. Patient was taken to PACU in stable condition with drain in place Surgical Findings: Very inflamed appendix and cecum with appendiceal abscess Complications Complications: No Admit VTE Documentation VTE Mechan Device Prophylaxis: SCD's
--- NOTE | 2024-07-02 09:54 | PCM.POST.ANE ---
Anesthesia: Postop Eval I Current Vital Signs Temperature: 98.8 F Pulse Rate: 72 Blood Pressure: 107/55 Respiratory Rate: 16 Pulse Ox: 100 Oxygen Delivery Method: Room Air Assessment Airway patent: Yes Spontaneous unlabored respirations: Yes Mental status: Awake nausea: No Vomiting: No Anesthesia Complication: No Fluid Hydration Crystalloid volume administer (ml): 900 Total IV fluid infused: 900 Progress Note Anesthesia document: Postop Eval 1 completed: Yes
[2024-07-02] MEDS: 0.9% Saline Lock 10 ML Syringe IV ×4 (10:56→22:21)
--- NOTE | 2024-07-02 13:11 | POSTOPAN2_ITS ---
Anesthesia Postop Eval I Sum Postop Eval Completion status Anesthesia document: Postop Eval 1 completed: Yes Anesthesia Postop Eval I Summary Anesthesia Postop Eval I Summary: Anesthesia Postop Eval I: Assessment Summary Airway patent Yes 07/02/24 09:55 AUTOMATION ANALYST.HBARR Spontaneous unlabored Yes 07/02/24 09:55 AUTOMATION ANALYST.HBARR respirations Mental status Awake 07/02/24 09:55 AUTOMATION ANALYST.HBARR nausea No 07/02/24 09:55 AUTOMATION ANALYST.HBARR Vomiting No 07/02/24 09:55 AUTOMATION ANALYST.HBARR Anesthesia Postop Eval I: Fluid Summary Crystalloid volume administer 900 07/02/24 09:55 AUTOMATION ANALYST.HBARR (ml) Colloids volume administered ( ml) Blood Product volume administered (ml) Total IV fluid infused 900 07/02/24 09:55 AUTOMATION ANALYST.HBARR Anesthesia Postop Eval I: Summary Notes Anesthesia Complication No 07/02/24 09:55 AUTOMATION ANALYST.HBARR Anesthesia Complication Comment: Post-operative progress note Anesthesia: Postop Eval II Evaluation Mental status: Awake and Calm Pain Level: 1 nausea: No Vomiting: No Complications Anesthesia Complication: No
--- NOTE | 2024-07-02 13:11 | PCM.POSTANE2 ---
Anesthesia Postop Eval I Sum Postop Eval Completion status Anesthesia document: Postop Eval 1 completed: Yes Anesthesia Postop Eval I Summary Anesthesia Postop Eval I Summary: Anesthesia Postop Eval I: Assessment Summary Airway patent Yes 07/02/24 09:55 FLAVORINGS COMPOUNDER.HBARR Spontaneous unlabored Yes 07/02/24 09:55 FLAVORINGS COMPOUNDER.HBARR respirations Mental status Awake 07/02/24 09:55 FLAVORINGS COMPOUNDER.HBARR nausea No 07/02/24 09:55 FLAVORINGS COMPOUNDER.HBARR Vomiting No 07/02/24 09:55 FLAVORINGS COMPOUNDER.HBARR Anesthesia Postop Eval I: Fluid Summary Crystalloid volume administer 900 07/02/24 09:55 FLAVORINGS COMPOUNDER.HBARR (ml) Colloids volume administered ( ml) Blood Product volume administered (ml) Total IV fluid infused 900 07/02/24 09:55 FLAVORINGS COMPOUNDER.HBARR Anesthesia Postop Eval I: Summary Notes Anesthesia Complication No 07/02/24 09:55 FLAVORINGS COMPOUNDER.HBARR Anesthesia Complication Comment: Post-operative progress note Anesthesia: Postop Eval II Evaluation Mental status: Awake and Calm Pain Level: 1 nausea: No Vomiting: No Complications Anesthesia Complication: No
[2024-07-02 13:56] LABS: Pathologist Review Reviewed
[2024-07-02] MEDS: oxyCODONE 5 MG Tablet PO (20:18)
[2024-07-03] MEDS: oxyCODONE 5 MG Tablet PO ×5 (00:08→23:39)
[2024-07-03] MEDS: Acetaminophen 325 MG Tablet 650 MG PO ×5 (00:09→23:39)
[2024-07-03] MEDS: 0.9% Saline Lock 10 ML Syringe IV (00:10)
[2024-07-03 05:09] VITALS: BP 113/69; PULSE 59; RESP 18; TEMP 36.6; O2SAT 97
[2024-07-03] MEDS: Piperacil/Tazobactam 3.375 GM in 0.9% Normal Saline (50mL MB+) 50 ML IV ×3 (05:14→22:02)
--- NOTE | 2024-07-03 07:42 | PCM.PN.SRG ---
Subjective Subjective Patient reports she did pass gas and tolerate clear liquids. She denies any nausea or vomiting. Denies fevers overnight. Objective Data Objective Data Vital Signs: Vital Signs Temp Pulse Resp BP Pulse Ox O2 Del Method 97.8 F 59 L 18 113/69 97 Room Air 07/03/24 05:09 07/03/24 05:09 07/03/24 05:09 07/03/24 05:09 07/03/24 05:09 07/03/24 05:09 Oxygen Delivery Method Room Air Weight: 124 lb 12.506 oz Body Mass Index (BMI) 21.4 Intake & Output: Intake and Output for Last 24 Hours 07/01/24 07/02/24 07/03/24 23:59 23:59 23:59 Intake Total 1100 / 1100 1731.67 / 1731.67 50 / 50 Output Total 335 / 355 35 / 35 Balance 1100 / 1100 1396.67 / 1376.67 15 / 15 Lab / Micro Data 07/02/24 05:21 07/02/24 05:21 Labs: Laboratory Results - last 24 hr 07/01/24 14:20: Diff Path Review Reviewed Physical Exam Const oriented x3 and no apparent distress Resp normal respiratory effort GI soft to palpation Palpation: tender Assessment & Plan Assessment/Plan (1) Acute appendicitis: QUALIFIERS: Acute appendicitis type: unspecified acute appendicitis type Qualified Code(s): K35.80 - Unspecified acute appendicitis PLAN: Patient had acute appendicitis with abscess. Patient is improving. She tolerated clear liquids and we will advance to full's today. Continue antibiotics as her appendicitis was very severe. Drain is serosanguineous. Possible discharge later today versus tomorrow. Will discharge on oral antibiotics. Mike Souza MD Pager: [facility] [address] [place] [address], [address] [place] [address] Office:
[2024-07-03 07:57] LABS: Absolute Lymphocyte Count 0.69 X10^3/uL (0.83-4.51); Basophil# 0.02 X10^3/uL; Basophil% 0.1 % (0-1); Hematocrit 33.5 % (37-47); Hemoglobin 10.7 g/dL (12.0-15.0); Lymphocyte # 0.69 X10^3/ul (0.83-4.51); Lymphocyte % 3.7 % (19-41); Mean Corp Hgb Conc 31.9 g/dL (32-36); Mean Corpuscular Hgb 30.8 pg (27.0-32.0); Mean Corpuscular Volume 96.5 fL (81-99); Mean Platelet Vol. 11.6 fl (6.2-12.0); Monocyte# 1.01 X10^3/uL; Monocyte% 5.3 % (0-10); NRBC Flagged by Analyzer 0 % (0-5); Neutrophil # 17.04 X10^3/uL (2.7-7.7); Neutrophil % 90.2 % (47-70); Platelet Count 249 K/mm3 (150-450); RBC Distribution Width CV 12.7 % (11.6-14.6); RBC Distribution Width SD 45.5 fl (35.1-43.9); Red Blood Count 3.47 M/mm3 (4.2-5.4); White Blood Count 18.9 K/mm3 (4.4-11.0)
[2024-07-03 08:38] VITALS: BP 113/69; PULSE 59; RESP 18; TEMP 36.6; O2SAT 97
[2024-07-03 08:39] LABS: Anion Gap 7 (5-15); BUN 7 mg/dL (7-18); BUN/Creat Ratio 10.6 RATIO (10-20); Calcium,Total 8.3 mg/dL (8.5-10.1); Chloride 104 mmol/L (98-107); Creatinine, Serum 0.66 mg/dL (0.55-1.02); EST Glomerular Filtration Rate 104 mL/min (>60); Est Glom Filt Rate - Afr Amer 126 mL/min (>60); Estimated Creatinine Clearance 96.86 ml/min; Glucose 127 mg/dL (74-106); Sodium Level 135 mmol/L (136-145)
[2024-07-03 08:40] VITALS: BP 110/69; PULSE 58; RESP 18; TEMP 36.5; O2SAT 98
--- NOTE | 2024-07-03 11:25 | CASEMGMT ---
RN CM Face to Face with patient for initial transition planning/care coordination assessment. RN CM introduced self and role at [facility]. Patient lying in bed, alert and oriented. Patient willing to participate in assessment and is able to answer all questions appropriately. Care providers, pharmacy, and demographics verified. Strata: 1 PCP: [facility] Specialists: none Preferred Pharmacy: [facility] Insurance: MMO Prescription Benefit: Yes Living Will/HPOA: none LNOK: sister Living Arrangements: Patient lives alone in a first floor apartment with no steps to enter the home. Patient states that she is independent at home. Transportation: self, family DME/HHC: Patient denies DME in the home. No previous HHC or SNF. Patient wishes to discharge home, denies need for home health at this time. Patient states she has no further needs or concerns at this time. CM to follow for discharge planning needs that may arise. Disposition Plan: Patient to discharge home with family support and follow-up plans in place. Zahida JI, RN, CM
[2024-07-03 14:17] VITALS: BP 113/69; PULSE 59; RESP 18; TEMP 36.6; O2SAT 97
[2024-07-03 14:40] VITALS: BP 123/78; PULSE 57; RESP 18; TEMP 36.6; O2SAT 100
[2024-07-03 22:00] VITALS: BP 108/67; PULSE 66; RESP 18; TEMP 35.8; O2SAT 98
[2024-07-04] MEDS: Acetaminophen 325 MG Tablet 650 MG PO (04:12)
[2024-07-04 05:00] VITALS: BP 99/70; PULSE 56; RESP 16; TEMP 35.8; O2SAT 98
[2024-07-04] MEDS: Piperacil/Tazobactam 3.375 GM in 0.9% Normal Saline (50mL MB+) 50 ML IV (05:22)
[2024-07-04 07:24] LABS: Absolute Lymphocyte Count 2.54 X10^3/uL (0.83-4.51); Absolute Neutrophil Count 7.3 X10^3/uL (2.0-7.7); Basophil# 0.02 X10^3/uL; Basophil% 0.2 % (0-1); Eosinophils% 0.9 % (0-5); Hemoglobin 11.6 g/dL (12.0-15.0); Lymphocyte # 2.54 X10^3/ul (0.83-4.51); Lymphocyte % 23.3 % (19-41); Mean Corp Hgb Conc 31.4 g/dL (32-36); Mean Corpuscular Hgb 31.1 pg (27.0-32.0); Mean Corpuscular Volume 99.2 fL (81-99); Mean Platelet Vol. 11.3 fl (6.2-12.0); Monocyte# 0.91 X10^3/uL; Monocyte% 8.3 % (0-10); NRBC Flagged by Analyzer 0 % (0-5); Neutrophil % 66.9 % (47-70); Platelet Count 356 K/mm3 (150-450); RBC Distribution Width CV 12.8 % (11.6-14.6); RBC Distribution Width SD 46.6 fl (35.1-43.9); Red Blood Count 3.73 M/mm3 (4.2-5.4); White Blood Count 10.9 K/mm3 (4.4-11.0)
[2024-07-04 07:58] VITALS: BP 99/70; PULSE 56; RESP 16; TEMP 35.8; O2SAT 98
[2024-07-04 07:58] LABS: Anion Gap 3 (5-15); BUN 10 mg/dL (7-18); BUN/Creat Ratio 10.4 RATIO (10-20); Calcium,Total 9.1 mg/dL (8.5-10.1); Chloride 104 mmol/L (98-107); Creatinine, Serum 0.96 mg/dL (0.55-1.02); EST Glomerular Filtration Rate 67 mL/min (>60); Est Glom Filt Rate - Afr Amer 82 mL/min (>60); Estimated Creatinine Clearance 66.59 ml/min; Glucose 91 mg/dL (74-106); Potassium 4.2 mmol/L (3.5-5.1); Sodium Level 138 mmol/L (136-145)
--- NOTE | 2024-07-04 08:24 | PCM.PN.SRG ---
Subjective Subjective Patient evaluated resting comfortably in bed. She notes feeling improved. She denies any nausea, vomiting, fever overnight. She mentioned she slept well. She notes tolerating full liquids without feeling bloated. She is passing flatus. Negative bowel movement. She is urinating well. Objective Data Objective Data Vital Signs: Vital Signs Temp Pulse Resp BP Pulse Ox O2 Del Method 96.5 F L 56 L 16 99/70 98 Room Air 07/04/24 07:58 07/04/24 07:58 07/04/24 07:58 07/04/24 07:58 07/04/24 07:58 07/04/24 07:58 Oxygen Delivery Method Room Air Weight: 124 lb 12.506 oz Body Mass Index (BMI) 21.4 Intake & Output: Intake and Output for Last 24 Hours 07/02/24 07/03/24 07/04/24 23:59 23:59 23:59 Intake Total 1731.67 / 1731.67 750 / 750 451.67 / 451.67 Output Total 335 / 355 60 / 70 130 / 130 Balance 1396.67 / 1376.67 690 / 680 321.67 / 321.67 Lab / Micro Data 07/04/24 06:55 07/04/24 06:55 Labs: Laboratory Results - last 24 hr 07/03/24 05:57: Sodium 135 L, Potassium 4.0, Chloride 104, Carbon Dioxide 24.0, Anion Gap 7, BUN 7, Creatinine 0.66, Estim Creat Clear Calc 96.86, Est GFR (MDRD) Af Amer 126, Est GFR (MDRD) Non-Af 104, BUN/Creatinine Ratio 10.6, Glucose 127 H, Calcium 8.3 L 07/04/24 06:55: WBC 10.9, RBC 3.73 L, Hgb 11.6 L, Hct 37.0, MCV 99.2 H, MCH 31.1, MCHC 31.4 L, RDW Std Deviation 46.6 H, RDW Coeff of Harry 12.8, Plt Count 356, MPV 11.3, Immature Gran % (Auto) 0.400, Neut % (Auto) 66.9, Lymph % (Auto) 23.3, [place] % (Auto) 8.3, Eos % (Auto) 0.9, Baso % (Auto) 0.2, Absolute Neuts (auto) 7.3, Absolute Lymphs (auto) 2.54, Nucleated RBC % 0, Sodium 138, Potassium 4.2, Chloride 104, Carbon Dioxide 31.0, Anion Gap 3 L, BUN 10, Creatinine 0.96, Estim Creat Clear Calc 66.59, Est GFR (MDRD) Af Amer 82, Est GFR (MDRD) Non-Af 67, BUN/Creatinine Ratio 10.4, Glucose 91, Calcium 9.1 Physical Exam GI GI Narrative: Abdomen- soft, slight tenderness to palpation. GUILLE drain with serosanguineous fluid. No erythema or infection at the incisions sites. Incisions c/d/i. Assessment & Plan Assessment/Plan (1) Acute appendicitis: QUALIFIERS: Acute appendicitis type: unspecified acute appendicitis type Qualified Code(s): K35.80 - Unspecified acute appendicitis PLAN: I am following this patient in conjunction with Dr. Owen in Dr. Souza's absence. She will independently evaluate this patient. Labs reviewed. WBC 10.9 Patient's IV failed and 3 attempts were made to obtain new access without success. D/C Zosyn and order Augmentin PO BID Will remove GUILLE drain today Miralax ordered as patient is at a higher increased risk for a post-op ileus Will d/c home on Augmentin Regular diet ordered Home-going instructions were discussed Probable discharge later today Charges/Coding Visit Charges Inpatient E&M: 33414 Subs Hosp L1 (post-op; no charge)
--- NOTE | 2024-07-04 08:46 | PCM.DC.SUM ---
Providers Date of Admission: 07/02/24 Primary Care Physician: Mattie Fairbanks MD Reason For Visit: ACUTE APPENDICITIS Diagnosis Discharge Diagnosis (1) Acute appendicitis: Status: Acute Code(s): K35.80 - Unspecified acute appendicitis Qualifiers: Acute appendicitis type: unspecified acute appendicitis type Qualified Code(s): K35.80 - Unspecified acute appendicitis Plan: I am following this patient in conjunction with Dr. Owen in Dr. Souza's absence. She will independently evaluate this patient. Labs reviewed. WBC 10.9 Patient's IV failed and 3 attempts were made to obtain new access without success. D/C Zosyn and order Augmentin PO BID Will remove GUILLE drain today Miralax ordered as patient is at a higher increased risk for a post-op ileus Will d/c home on Augmentin Regular diet ordered Home-going instructions were discussed Probable discharge later today Medications at Discharge Home Medications acetaminophen 325 mg tablet 650 mg (2 x 325 mg) PO Q4H PRN PRN Pain 1-10 Or Fever #0 tabs 07/04/24 amoxicillin 875 mg-potassium clavulanate 125 mg tablet 1 tab PO BID 7 days #14 tabs 07/04/24 oxycodone 5 mg tablet 5 mg PO Q6H PRN PRN Pain Score 6-10 2 days #7 tabs 07/04/24 Hospital Course Operations appendectomy (Laparoscopic appendectomy) Summary of Care Provided Minutes Spent on Discharge: 30 Hospital Course: Patient is a 43 y/o F who presented with a 10-14 day history of right lower quadrant abdominal pain. CT scan of the ab/pel was obtained demonstrating diffuse inflammatory process in the right lower quadrant consistent with appendicitis with associated bowel wall thickening. Dr. Souza performed a laparoscopic appendectomy on 07/02/24. During the procedure patient was found to have an abscess, which did spill into the abdominal cavity. A GUILLE drain was placed. Patient was continued on IV Zosyn. She had an uneventful hospitalization. Upon discharge, she denies nausea, vomiting, fever. She has been ambulating in the hallway. She notes positive flatus. Negative bowel movement. Incisions c/d/i. Weight / BMI Weight Weight: 124 lb 12.506 oz Body Mass Index (BMI) 21.4 ABG / Lab / Microbiology Data 07/04/24 06:55 07/04/24 06:55 Laboratory: Laboratory Results - last 24 hr 07/04/24 06:55: WBC 10.9, RBC 3.73 L, Hgb 11.6 L, Hct 37.0, MCV 99.2 H, MCH 31.1, MCHC 31.4 L, RDW Std Deviation 46.6 H, RDW Coeff of Harry 12.8, Plt Count 356, MPV 11.3, Immature Gran % (Auto) 0.400, Neut % (Auto) 66.9, Lymph % (Auto) 23.3, [place] % (Auto) 8.3, Eos % (Auto) 0.9, Baso % (Auto) 0.2, Absolute Neuts (auto) 7.3, Absolute Lymphs (auto) 2.54, Nucleated RBC % 0, Sodium 138, Potassium 4.2, Chloride 104, Carbon Dioxide 31.0, Anion Gap 3 L, BUN 10, Creatinine 0.96, Estim Creat Clear Calc 66.59, Est GFR (MDRD) Af Amer 82, Est GFR (MDRD) Non-Af 67, BUN/Creatinine Ratio 10.4, Glucose 91, Calcium 9.1 D/C Instructions Discharge Diet: Light diet - advance as tolerated Discharge Activity: May Not Drive (while taking narcotic pain medication or 3-5 days from surgery) Ice area for (Minutes): 20 Lifting Restrictions: 15 pounds x 4 weeks Call your doctor if your incision/area has: Continuous Slow Oozing, Sudden Increased Bleeding, Increased Pain/ Swelling, Increased Redness, Foul Smelling Discharge and Swelling at the incision site Call your doctor if you observe: Fever of 101 or Higher Suture Line Care: Avoid Pulling/Pushing and Avoid Pinching/Bending Remove Dressing in: 1 day Cleanse incision/area with: Soap & Water Additional Dressing/Incision Instructions: You may remove the steri-strips after 1 week DC O2, CPAP, BIPAP Needs Home O2 Discharge instructions: No Please Follow Up With: Annamarie Em PA-C When: 07/15/24 at 0730 AM Meaningful Use Info Meaningful Use Meaningful Use Diagnoses (Choose all that apply): None applicable Ischemic Stroke Statin Dosing Therapy Reference: STATIN DOSE THERAPY REFERENCE: * Patients > 75 years receive moderate or high dose statin therapy. * Patients 75 years or YOUNGER should receive HIGH intensity statin dose unless contraindicated. You will be required to document reason for non-treatment if statin daily dose does not meet guidelines. HIGH DOSE STATIN THERAPY DAILY Atorvastatin > than or = to 40 mg Rosuvastatin > than or = to 20 mg Amlodipine + Atorvastatin > than or = to 2.5/40 mg Ezetimibe + Simvastatin 10/80 mg Simvastatin 80mg Discharge Plan Admission Admit Date/Time: 07/02/24 11:49 Primary Reason for Your Visit: Acute appendicitis with abscess Attending Provider: Mike Souza Primary Care Provider: Mattie Fairbanks Instructions Additional Instructions / Restrictions: Appendectomy Diet ? Start light with soups and soft bland foods. You may advance diet as tolerated. Activity ? You may drive in 3-5 days but not while taking narcotic pain medication. ? I encourage walking. You may go up steps, one at a time. ? Do not swim or use hot tubs for 2 weeks. ? For comfort, you may use warm compresses or ice as needed for 15-20 minutes at a time. Lifting ? You may lift up to 15 pounds for the 4 weeks Dressings/Incision ? You may shower OVER your plastic dressings ? Do NOT tub bathe for 1 week ? Leave plastic dressings on for 3 days. ? When plastic dressings are removed, you will find steri-strips. It is okay to continue showering with them in place, pat them dry. ? You may remove steri-strips after 1 week. We recommend getting them soaking wet for easier removal. Medications ? Anesthesia used during surgery and pain medications may cause constipation. I recommend initiating on the day of surgery a fiber supplement like, Metamucil, Citrucel, FiberCon, Benefiber, or a generic form of these medications. 1 heaping tablespoon in water daily. You may continue to utilize any bowel regimen or oral laxatives that you routinely take. Recommend taking 1 heaping tablespoon of Miralax twice daily until you resume your normal bowel habits. Colace and Magnesium Citrate are other options to take if a bowel movement has not occurred in 4 days post-op. ? As long as you are not intolerant to Tylenol (650-1,000 mg every 6H PRN), acetaminophen, ibuprofen (600 mg every 8H PRN), Motrin, Advil, Aleve, or similar medications, I would recommend transitioning to these [id number]-uss-[id number] medicines as soon as possible instead of continued use of narcotic pain medication. Follow up ? You should call [facility] soon after surgery, at [phone] option 2 to make a follow up appointment for 7-10 days after your surgery. Your post-op appointment is scheduled for 07/15/24 at 0730 AM. Discharge Orders/Prescriptions Prescriptions: New amoxicillin-pot clavulanate 875-125 mg Tablet 1 tab PO BID 7 Days Qty: 14 0RF oxycodone 5 mg Tablet 5 mg PO Q6H PRN PRN (Reason: Pain Score 6-10) 2 Days Qty: 7 0RF acetaminophen 325 mg Tablet 650 mg PO Q4H PRN PRN (Reason: Pain 1-10 Or Fever) Qty: 0 0RF Referrals / Follow Up: Mattie Fairbanks MD [Primary Care Provider] - NOT,DEFINED [Non-Staff] - Annamarie Em PAAntwonC [Med Staff - [facility] Practice [facility]] - 07/15/24 7:30 am Disposition Disposition (needs filled in before D/C Order can be placed): Home, Self Care Charges/Coding Visit Charges Inpatient E&M: 90982 Disch Hosp (no charge; post-op)
[2024-07-04] MEDS: Ibuprofen 600 MG Tablet PO (09:18)
[2024-07-04] MEDS: Polyethylene Glycol 3350 17 GM PACKET PO (09:18)
[2024-07-04] MEDS: Amox/Clavulanate 875 MG Tablet PO (09:18)
[2024-07-04 09:20] VITALS: BP 130/79; PULSE 58; RESP 18; TEMP 36.5; O2SAT 100
--- NOTE | 2024-07-04 09:26 | CASEMGMT ---
Patient has order for discharge. RN CM in to discuss needs at discharge. Patient denies needs or help at discharge. Patient had no further questions or concerns.
[2024-07-04 09:29] VITALS: BP 130/79; PULSE 58; RESP 18; TEMP 36.5; O2SAT 100
== END 2024-07-04 13:27 | disposition home or self-care (01) | DRG 399 ==
LOC: ED 15:39 → PCU 18:35
PROVIDERS: Physician Assistant; Admitting Provider Surgery; Emergency Provider Emergency Medicine; PCP Internal Medicine; Visit Provider Surgery
PROC: 0DTJ4ZZ Resection of Appendix, Percutaneous Endoscopic Approach (ICD-10-PCS; CPT 44970; principal; 2024-07-02 08:25)
DX: K35.33 Acute appendicitis with perforation, localized peritonitis, and gangrene, with abscess (principal); N73.9 Female pelvic inflammatory disease, unspecified; Z80.0 Family history of malignant neoplasm of digestive organs
CPT/HCPCS: 36415; 74177; 80048; 80053; 81001; 83690; 84703; 85025; 88304; 99284; Q9967; A4216; J2405